=== PATIENT | female | born 1980 | race African-American/Black ===

== ENCOUNTER 2017-11-25 10:58 | Emergency (ER) | payer BC ==
[~2017-11-25] VITALS: Ht 172.7 cm; Wt 96.4 kg
[2017-11-25 11:02] VITALS: Ht 172.7 cm; Wt 96.4 kg
[2017-11-25 11:33] VITALS: BP 142/068
== END 2017-11-25 11:34 | disposition home or self-care (01) ==
LOC: D.ER 10:58
DX: S67.190A Crushing injury of right index finger, initial encounter (principal); S67.192A Crushing injury of right middle finger, initial encounter; S67.194A Crushing injury of right ring finger, initial encounter; W23.0XXA Caught, crushed, jammed, or pinched between moving objects, initial encounter; Y93.89 Activity, other specified; Y92.019 Unspecified place in single-family (private) house as the place of occurrence of the external cause; R22.41 Localized swelling, mass and lump, right lower limb

== ENCOUNTER 2019-09-29 16:16 | Emergency (ER) | payer BC ==
[~2019-09-29] VITALS: Ht 172.7 cm; Wt 103.6 kg
[2019-09-29 16:31] VITALS: BP 135/87; Ht 172.7 cm; Wt 103.6 kg
[2019-09-29 17:00] LABS: BILIRUBIN NEGATIVE (NEGATIVE); GLUCOSE NEGATIVE (NEGATIVE); KETONE MODERATE mg/dL (NEGATIVE); NITRITE NEGATIVE (NEGATIVE); UROBILINOGEN NORMAL (NORMAL)
[2019-09-29 17:09] LABS: BASOPHILS 0.3 % (0-2); EOSINOPHILS 1.1 % (0-7); HEMATOCRIT 36.6 % (36.0-48.0); HEMOGLOBIN 11.8 g/dL (12-16); IMMATURE GRANULOCYTES 0.2 % (0-5); LYMPHOCYTES 14.4 % (15-50); MCH 26.7 pg (26.0-34.0); MCHC 32.2 g/dL (31.0-37.0); MCV 82.8 fL (80.0-100.0); MEAN PLATELET VOLUME 9.6 fL (7.4-10.4); MONOCYTES 3.9 % (2-11); NEUTROPHILS 80.1 % (40-80); PLATELET COUNT 287 10x3/uL (130-400); RBC 4.42 10x6/uL (4.00-5.40); RDW 16.4 % (11.5-14.5); WBC 10.1 10x3/uL (4.8-10.8)
[2019-09-29 18:28] LABS: ANION GAP 14.7 mmol/L (8-16); CALCIUM 9.4 mg/dL (8.5-10.1); CARBON DIOXIDE 25.5 mmol/L (21.0-32.0); CREATININE - SERUM 1.1 mg/dL (0.6-1.3); POTASSIUM - SERUM 4.2 mmol/L (3.5-5.1)
[2019-09-29 18:48] LABS: ALBUMIN 4.4 g/dL (3.4-5.0); BILIRUBIN - TOTAL 0.25 mg/dL (0.2-1.3); PROTEIN - SERUM 8.2 g/dL (6.4-8.2); THYROID STIMULATING HORMONE 1.23 uIU/mL (0.36-3.74)
[2019-09-29] MEDS ORDERED: MEDROL DOSE PACK4 MG PO (19:12)
[2019-09-29] MEDS ORDERED: CENTRUM SILVER1 EAC3 PO (19:12)
== END 2019-09-29 19:29 | disposition home or self-care (01) ==
LOC: D.ER 16:16
PROVIDERS: Family Medicine
DX: B34.9 Viral infection, unspecified (principal)